=== PATIENT | female | born 1945 | race Caucasian/White ===

== ENCOUNTER 2016-11-11 12:05 | Emergency (ER) | payer MEDICARE ==
[~2016-11-11] VITALS: Ht 157.5 cm; Wt 40.5 kg
[~2016-11-11 12:05] MED LIST: LEVO100T4 PO; OMEP20TA39 PO; POLY119S PO; TRAZ50TA4 PO
[2016-11-11 12:08] VITALS: BP 126/91; PULSE 92; RESP 16; TEMP 98.8; O2SAT 98
[2016-11-11] MEDS ORDERED: LEVO88TA2 PO (12:23)
[2016-11-11] MEDS ORDERED: TRAZ100T4 PO (12:23)
--- NOTE | 2016-11-11 12:32 | PD ---
HPI Chief Complaint: Nosebleed Time Seen by Provider: 12:15 Travel History International Travel<30 days: No Contact w/Intl Traveler<30days: No Traveled to known affect area: No History of Present Illness HPI This 71-year-old female who been having some pain in the back of her head for a day or 2. She says the back of the head is quite sensitive and she is concerned she might have an infection there. She also has some tenderness in the front of the neck. His been having nosebleeds sporadically since she flew to [place] couple of weeks ago. She is not on any blood thinners. PFSH Past Medical History Gastrointestinal Disorders: Yes (GASTROPARESIS) Thyroid Disease: Yes Past Surgical History Hysterectomy: Yes (partial) Other Surgery: Yes (hemmorhoids) Social History Alcohol Use: No Tobacco Use: No Substance Use: No Allergies-Medications (Allergen,Severity, Reaction): Coded Allergies: Sulfites & Bisulfites (Verified Allergy, Severe, vomiting, 11/11/16) Codeine (Verified Allergy, Intermediate, 11/11/16) Naproxen (Verified Allergy, Intermediate, 11/11/16) Sulfa (Verified Allergy, Unknown, 11/11/16) Erythromycin (Verified Adverse Reaction, Intermediate, WEAKNESS, 11/11/16) Reglan (Verified Adverse Reaction, Intermediate, HYPER/NERVOUS, 11/11/16) Reported Meds & Prescriptions Reported Meds & Active Scripts Active Reported Trazodone (Trazodone HCl) 100 Mg Tab 100 Mg PO HS Levothyroxine (Levothyroxine Sodium) 88 Mcg Tab 88 Mcg PO DAILY Review of Systems General / Constitutional: No: Fever, Chills Eyes: No: Diploplia HENT: No: Headaches Cardiovascular: No: Chest Pain or Discomfort, Palpitations Respiratory: No: Cough Gastrointestinal: No: Nausea Genitourinary: No: Urgency Musculoskeletal: No: Myalgias, Arthralgias Endocrine: No: Heat Intolerance Hematologic/Lymphatic: No: Easy Bruising Physical Exam Narrative GENERAL: Well-developed female SKIN: Focused skin assessment warm/dry. Examination the occipital area of the couple of shotty lymph nodes present. There is also no palpable right anterior cervical chain and the left side. Posterior pharynx is negative HEAD: Atraumatic. Normocephalic. EYES: Pupils equal and round. No scleral icterus. No injection or drainage. ENT: There is some dried blood in the right nostril. Mucous membranes pink and moist. NECK: Trachea midline. No JVD. CARDIOVASCULAR: Regular rate and rhythm. No murmur appreciated. RESPIRATORY: No accessory muscle use. Clear to auscultation. Breath sounds equal bilaterally. GASTROINTESTINAL: Abdomen soft, non-tender, nondistended. Hepatic and splenic margins not palpable. MUSCULOSKELETAL: No obvious deformities. No clubbing. No cyanosis. No edema. NEUROLOGICAL: Awake and alert. No obvious cranial nerve deficits. Motor grossly within normal limits. Normal speech. PSYCHIATRIC: Appropriate mood and affect; insight and judgment normal. Data Data Last Documented VS Vital Signs Date Time Temp Pulse Resp B/P Pulse Ox O2 Delivery O2 Flow Rate FiO2 11/11/16 12:08 98.8 92 16 126/91 98 MDM Medical Decision Making Medical Screen Exam Complete: Yes Emergency Medical Condition: Yes Medical Record Reviewed: Yes Differential Diagnosis Patient has some lymph nodes that are quite tender. See any evidence of bacterial infection. I have recommended that she follow up with Dr. Redding I don't think needs to be done at this time. I will be she would benefit from antibiotics Narrative Course I don't see evidence of bacterial infection and recommend observation and follow -up with Dr. Redding. Diagnosis Primary Impression: Lymphadenitis Disposition: DISCHARGE HOME Condition: Stable Gerson Wei MD Nov 11, 2016 12:32
== END 2016-11-11 12:40 | disposition home or self-care (01) ==
LOC: PHED 12:05
DX: I88.9 Nonspecific lymphadenitis, unspecified (principal); R51 Headache; M54.2 Cervicalgia; R04.0 Epistaxis; E07.9 Disorder of thyroid, unspecified; Z87.19 Personal history of other diseases of the digestive system
CPT/HCPCS: 99282